=== PATIENT | female | born 2000 | race Caucasian/White ===

== ENCOUNTER 2018-07-30 01:32 | Emergency (ER) | payer OTHER ==
[~2018-07-30] VITALS: Ht 157.5 cm; Wt 56.7 kg
--- OUTSIDE RECORDS SUMMARY | 2018-07-30 01:42 | XMS REPORT ---
Author Author JETT DUPREE Organization [facility] Address [address] [place] [address] Care Team Providers Care Truck And Transport Mechanic Name Role Phone JETT DUPREE Unavailable PROBLEMS Type Condition ICD9-CM Code [id number] Code Onset Dates Condition Status SNOMED Code Problem Major depressive disorder, recurrent episode, moderate F33.1 Active [id number] ALLERGIES No Information ENCOUNTERS Encounter Location Date Diagnosis [place] [id number] [place] [phone] May, [place] [address], [place] [address] Apr, [place] [id number] [place] [phone] Apr, Major depressive disorder, recurrent episode, moderate F33.1 [id number] [place] [phone] Mar, Major depressive disorder, recurrent episode, moderate F33.1 IMMUNIZATIONS No Known Immunizations SOCIAL HISTORY Never Assessed REASON FOR VISIT Depression PLAN OF CARE Activity Details Follow Up 3 Weeks and the call in list Reason: Follow-up VITAL SIGNS MEDICATIONS Unknown Medications RESULTS No Results PROCEDURES Procedure Date Ordered Result Body Site Psychotherapy, patient &/family, 45 minutes, established patient May 03, 2018 INSTRUCTIONS MEDICATIONS ADMINISTERED No Known Medications
--- OUTSIDE RECORDS SUMMARY | 2018-07-30 01:42 | XMS REPORT ---
Author Author JETT DUPREE Organization [facility] Address [address] [place] [address] Care Team Providers Care Hat Parts Cutter Machine Name Role Phone JETT DUPREE Unavailable PROBLEMS Type Condition ICD9-CM Code [id number] Code Onset Dates Condition Status SNOMED Code Problem Major depressive disorder, recurrent episode, moderate F33.1 Active [id number] ALLERGIES No Information ENCOUNTERS Encounter Location Date Diagnosis [facility] [address], [place] [address] Apr, [facility] [address] [place] [address] Apr, [facility] [address] [place] [phone] Mar, [facility] [address] [place] [id number] [address] Mar, Major depressive disorder, recurrent episode, moderate F33.1 IMMUNIZATIONS No Known Immunizations SOCIAL HISTORY Never Assessed REASON FOR VISIT Intake PLAN OF CARE Activity Details Follow Up 1 Week Reason: Follow-up VITAL SIGNS MEDICATIONS Medication Instructions Dosage Frequency Start Date End Date Duration Status Acyclovir Active Doxycycline (Rosacea) Active RESULTS No Results PROCEDURES Procedure Date Ordered Result Body Site Psych diagnostic evaluation, new patient Apr 18, 2018 INSTRUCTIONS MEDICATIONS ADMINISTERED No Known Medications
--- OUTSIDE RECORDS SUMMARY | 2018-07-30 01:42 | XMS REPORT ---
Author Author JETT DUPREE Organization [facility] Address [address] [place] [address] Care Team Providers Care Digital Marketing Apprentice Name Role Phone JETT DUPREE Unavailable PROBLEMS Type Condition ICD9-CM Code [id number] Code Onset Dates Condition Status SNOMED Code Problem Major depressive disorder, recurrent episode, moderate F33.1 Active [id number] ALLERGIES No Information ENCOUNTERS Encounter Location Date Diagnosis [place] [id number] [place] [phone] Jun, [facility] [address] [place] [id number] [place] [phone] Jun, [facility] [address] [place] [address] May, [facility] [address] [place] [address] [id number] [place] [phone] Apr, Major depressive disorder, recurrent episode, moderate F33.1 [facility] [address], [place] [address] Apr, Major depressive disorder, recurrent episode, moderate F33.1 [place] [address] [place] [address] Mar, Major depressive disorder, recurrent episode, moderate F33.1 IMMUNIZATIONS No Known Immunizations SOCIAL HISTORY Never Assessed REASON FOR VISIT Follow-up Depression PLAN OF CARE Activity Details Follow Up 2 Weeks Reason: Follow-up VITAL SIGNS MEDICATIONS Medication Instructions Dosage Frequency Start Date End Date Duration Status Zoloft Active Acyclovir Unknown Doxycycline (Rosacea) Unknown RESULTS No Results PROCEDURES Procedure Date Ordered Result Body Site Psychotherapy, patient and family, 45 minutes, established patient May 24, 2018 INSTRUCTIONS MEDICATIONS ADMINISTERED No Known Medications
[2018-07-30] MEDS ORDERED: LACTATED RINGERS 1,000 ML IV ONE (02:55)
[2018-07-30] MEDS ORDERED: ACETAMINOPHEN 500 MG TAB (TYLENOL) PO ONE (03:00)
[2018-07-30] MEDS ORDERED: diphenhydrAMINE 25 MG TAB (BENADRYL) PO ONE (03:00)
[2018-07-30] MEDS ORDERED: PROCHLORPERAZINE 10 MG/2ML INJ (COMPAZINE) IV ONE (03:00)
--- NOTE | 2018-07-30 03:01 | ED Headache ---
General Chief Complaint: Head/Cervical Problems Stated Complaint: HAD BRAIN SURGERY 07-26-16,FLORES,HAS COPPER STINTS Nursing Triage Note: PT STATES SHE HAS HAD A PERSISTENT HEADACHE FOR THE LAST TWO WEEKS, VERBALIZED LIGHT AND NOISE SENSITIVITY. PT STATES SHE HAD BRAIN SURGERY IN 2016 TO REMOVE CLOTS. DENIES NAUSEA OR VOMITING, DENIES STRIKING HER HEAD OR VISION CHANGES. Source: patient, other Exam Limitations: no limitations History of Present Illness Date Seen by Provider: Jul 30, 2018 Time Seen by Provider: 02:44 Initial Comments The patient presents to ER by private conveyance with her significant other with chief complaint of a two-week long headache. It starts on the right mu-ism and radiates to the left mu-ism. Feels like a drill is drilling into her skull. She's having some discomfort in her bilateral occiput. She just got new prescription glasses and thought that maybe that was part of the reason she was having a headache but after a week she decided felt more like the headache she was having when she had a bunch of blood clots in her brain. In 2017 the patient had blood clots in her brain that they think are secondary to her high estrogen control but she was using for her complexion. She also had a couple copper stents placed. She says this headache is not similar to her migraines as it is constant and not throbbing and however it is accompanied with photophobia and phonophobia. She's had some nasal congestion and runny nose but no sore throat ears underwater, fevers. She's had some nausea but no vomiting. No abdominal pain diarrhea or constipation. No rashes. She's not on blood thinners nor does she use ibuprofen but she has been using Excedrin and Tylenol with modest to minimal relief of her headache. She has not use any today. Allergies and Home Medications Allergies Coded Allergies: No Allergy Information Available (Unverified , 10/17/17) Patient Home Medication List Home Medication List Reviewed: Yes Review of Systems Review of Systems Constitutional: No chills, No diaphoresis Eyes: Denies Blindness, Denies Blurred Vision Ears, Nose, Mouth, Throat: denies ear pain, denies ear discharge Respiratory: No cough, No short of breath Cardiovascular: No chest pain, No palpitations Gastrointestinal: No abdominal pain, No constipation, No diarrhea Genitourinary: No discharge, No dysuria : No LMP: Jul 17, 2018 Musculoskeletal: No back pain, No joint pain Past Mkntpvk-Nxzvsp-Muazwz Hx Patient Social History Alcohol Use: Occasionally Uses Alcohol Beverage of Choice: Beer Recreational Drug Use: No Smoking Status: Current Everyday Smoker Type Used: Electronic/Vapor Recent Foreign Travel: No Contact w/Someone Who Travel: No Recent Infectious Disease Expo: No Recent Hopitalizations: No Immunizations Up To Date PED Vaccines UTD: Yes Seasonal Allergies Seasonal Allergies: No Past Medical History Surgeries: Yes (CLOTS REMOVED FROM BRAIN-2017) Brain Shunt, Tonsillectomy Respiratory: No Cardiac: No Neurological: Yes Headaches /Migraines Genitourinary: No Gastrointestinal: No Musculoskeletal: No Endocrine: No HEENT: No Cancer: No Psychosocial: No Integumentary: No Physical Exam Vital Signs Vital Signs - First Documented 07/30/18 01:54 Temp 98.3 Pulse 77 Resp 20 B/P (MAP) 112/71 Pulse Ox 98 O2 Delivery Room Air Capillary Refill : Height, Weight, BMI Height: 5'2.00" Weight: 125lbs. oz. 56.347012ah; 21.09 BMI Method:Stated General Appearance: WD/WN, mild distress HEENT: PERRL/EOMI, normal ENT inspection, TMs normal, pharynx normal Neck: non-tender, full range of motion, supple, normal inspection Cardiovascular: normal peripheral pulses, regular rate, rhythm, no edema Respiratory: lungs clear, normal breath sounds, no respiratory distress, no accessory muscle use Gastrointestinal: non tender, soft Extremities: normal range of motion, non-tender, normal capillary refill Psychiatric: alert, oriented x 3 Crainal Nerves: normal hearing, normal speech, PERRL Coordination/Gait: normal finger to nose, normal gait Motor/Sensory: no motor deficit, no sensory deficit, no pronator drift Skin: normal color, warm/dry Progress/Results/Core Measures Results/Orders Lab Results Laboratory Tests Test 07/30/18 02:25 07/30/18 03:07 Range/Units Urine Color YELLOW Urine Clarity CLEAR Urine pH 5 5-9 Urine Specific [place] 1.020 1.016-1.022 Urine Protein NEGATIVE NEGATIVE Urine Glucose (UA) NEGATIVE NEGATIVE Urine Ketones NEGATIVE NEGATIVE Urine Nitrite NEGATIVE NEGATIVE Urine Bilirubin NEGATIVE NEGATIVE Urine Urobilinogen NORMAL NORMAL MG/DL Urine Leukocyte Esterase 1+ H NEGATIVE Urine RBC (Auto) NEGATIVE NEGATIVE Urine RBC NONE /HPF Urine WBC 5-10 H /HPF Urine Squamous Epithelial Cells 0-2 /HPF Urine Crystals PRESENT H /LPF Urine Calcium Oxalate Crystals FEW H /LPF Urine Bacteria FEW H /HPF Urine Casts NONE /LPF Urine Mucus MODERATE H /LPF Urine Culture Indicated YES Urine Opiates Screen NEGATIVE NEGATIVE Urine Oxycodone Screen NEGATIVE NEGATIVE Urine Methadone Screen NEGATIVE NEGATIVE Urine Propoxyphene Screen NEGATIVE NEGATIVE Urine Barbiturates Screen NEGATIVE NEGATIVE Ur Tricyclic Antidepressants Screen NEGATIVE NEGATIVE Urine Phencyclidine Screen NEGATIVE NEGATIVE Urine Amphetamines Screen NEGATIVE NEGATIVE Urine Methamphetamines Screen NEGATIVE NEGATIVE Urine Benzodiazepines Screen NEGATIVE NEGATIVE Urine Cocaine Screen NEGATIVE NEGATIVE Urine Cannabinoids Screen NEGATIVE NEGATIVE White Blood Count 6.9 4.3-11.0 10^3/uL Red Blood Count 4.79 4.35-5.85 10^6/uL Hemoglobin 14.5 11.5-16.0 G/DL Hematocrit 43 35-52 % Mean Corpuscular Volume 89 80-99 FL Mean Corpuscular Hemoglobin 30 25-34 PG Mean Corpuscular Hemoglobin Concent 34 32-36 G/DL Red Cell Distribution Width 12.8 10.0-14.5 % Platelet Count 258 130-400 10^3/uL Mean Platelet Volume 10.9 H 7.4-10.4 FL Neutrophils (%) (Auto) 35 L 42-75 % Lymphocytes (%) (Auto) 50 H 12-44 % Monocytes (%) (Auto) 10 0-12 % Eosinophils (%) (Auto) 5 0-10 % Basophils (%) (Auto) 0 0-10 % Neutrophils # (Auto) 2.4 1.8-7.8 X 10^3 Lymphocytes # (Auto) 3.5 1.0-4.0 X 10^3 Monocytes # (Auto) 0.7 0.0-1.0 X 10^3 Eosinophils # (Auto) 0.3 0.0-0.3 10^3/uL Basophils # (Auto) 0.0 0.0-0.1 10^3/uL Erythrocyte Sedimentation Rate 1 0-20 MM/HR Prothrombin Time 12.8 12.2-14.7 SEC INR Comment 1.0 0.8-1.4 Activated Partial Thromboplast Time 31 24-35 SEC D-Dimer 0.37 0.00-0.49 UG/ML Sodium Level 141 135-145 MMOL/L Potassium Level 4.0 3.6-5.0 MMOL/L Chloride Level 107 98-107 MMOL/L Carbon Dioxide Level 22 21-32 MMOL/L Anion Gap 12 5-14 MMOL/L Blood Urea Nitrogen 11 7-18 MG/DL Creatinine 0.66 0.60-1.30 MG/DL Estimat Glomerular Filtration Rate > 60 BUN/Creatinine Ratio 17 Glucose Level 93 70-105 MG/DL Calcium Level 9.3 8.5-10.1 MG/DL Corrected Calcium 9.0 8.5-10.1 MG/DL Total Bilirubin 0.2 0.1-1.0 MG/DL Aspartate Amino Transf (AST/SGOT) 17 5-34 U/L Alanine Aminotransferase (ALT/SGPT) 17 0-55 U/L Alkaline Phosphatase 59 40-136 U/L C-Reactive Protein High Sensitivity 0.03 0.00-0.50 MG/DL Total Protein 7.1 6.4-8.2 GM/DL Albumin 4.4 3.2-4.5 GM/DL My Orders Orders - ALYSIA JOHNSON Ct Angio Head W (07/30/18 02:55) Cbc With Automated Diff (07/30/18 02:55) Comprehensive Metabolic Panel (07/30/18 02:55) Hs C Reactive Protein (07/30/18 02:55) Fibrin Degradation Products (07/30/18 02:55) Drug Screen Stat (Urine) (07/30/18 02:55) Protime With Inr (07/30/18 02:55) Partial Thromboplastin Time (07/30/18 02:55) Ua Culture If Indicated (07/30/18 02:55) Erythrocyte Sedimentation Rate (07/30/18 02:55) Saline Lock/Iv-Start (07/30/18 02:55) Lactated Ringers (Lr 1000 Ml Iv Solution (07/30/18 02:55) Acetaminophen Tablet (Tylenol Tablet) (07/30/18 03:00) Diphenhydramine Tablet (Benadryl Tablet) (07/30/18 03:00) Prochlorperazine Injection (Compazine In (07/30/18 03:00) Urine Culture (07/30/18 02:25) Iohexol Injection (Omnipaque 350 Mg/Ml 1 (07/30/18 03:45) Contrast Received (Contrast Received) (07/30/18 03:45) Ns (Ivpb) (Sodium Chloride 0.9% Ivpb Bag (07/30/18 03:45) Medications Given in ED Current Medications Medications Dose Ordered Sig/Ariana Route Start Time Stop Time Status Last Admin Dose Admin Acetaminophen 1,000 mg ONCE ONCE PO 07/30/18 03:00 07/30/18 03:01 DC 07/30/18 03:28 1,000 MG Diphenhydramine HCl 25 mg ONCE ONCE PO 07/30/18 03:00 07/30/18 03:01 DC 07/30/18 03:28 25 MG Lactated Ringer's 1,000 ml @ 0 mls/hr Q0M ONCE IV 07/30/18 02:55 07/30/18 03:00 DC 07/30/18 03:28 1,000 MLS/HR Prochlorperazine Edisylate 10 mg ONCE ONCE IV 07/30/18 03:00 07/30/18 03:01 DC 07/30/18 03:28 10 MG Vital Signs/I&O 07/30/18 01:54 Temp 98.3 Pulse 77 Resp 20 B/P (MAP) 112/71 Pulse Ox 98 O2 Delivery Room Air Progress Progress Note #1: Time: 03:29 Progress Note White blood cells without a lot of squames consistent with a early onset bladder infection. We'll put her on Macrobid outpatient. D-dimer to be obtained. This should rule out clots in the brain. 2 weeks of headache with no neurologic deficits but she says it feels exactly the same as when she had clots in her brain. Very unusual presentation for just oral contraceptives to cause clotting in the brain and no other DVTs. She is not on oral contraceptives or NSAIDs at this time. We'll obtain a CT angiogram looking at her vasculature of her head. Urine and blood. Normal saline 1 L Progress Note #2: Time: 04:00 Progress Note D-dimer is negative. Discussed with the patient and return to discontinue the CT angiogram send her home some Zofran and get some sleep. She was sleeping when I went in to visit with her. She says her pain has improved. Diagnostic Imaging Diagonstic Imaging: CT (angio) Plain Films/CT/US/NM/MRI: head Reviewed: Reviewed by Me Departure Impression Primary Impression: Headache Qualified Codes: G44.209 - Tension-type headache, unspecified, not intractable Disposition: HOME, SELF-CARE Condition: Improved Departure-Patient Inst. Decision time for Depature: 04:02 Referrals: [facility] (PCP/Family) Primary Care Physician Patient Instructions: Migraine Headache (DC) Add. Discharge Instructions: Follow-up with student health or primary care as necessary for management of your headache. If you begin to have any neurologic symptoms of double vision, difficulty walking, intractable nausea vomiting or other worrisome symptoms you can return to the nearest ER for further evaluation. Zofran 1 tablet every 6 hours as needed for nausea. All discharge instructions reviewed with patient and/or family. Voiced understanding. Scripts Ondansetron (Ondansetron Odt) 4 Mg Tab.rapdis 4 MG PO Q6H PRN for NAUSEA/VOMITING, #10 TAB 0 Refills Prov: ALYSIA JOHNSON 07/30/18 ALYSIA JOHNSON Jul 30, 2018 03:01
[2018-07-30 03:03] LABS: BILIRUBIN,URINE NEGATIVE (NEGATIVE); CLARITY,URINE CLEAR; COLOR,URINE YELLOW; GLUCOSE, URINE (UA) NEGATIVE (NEGATIVE); KETONES,URINE NEGATIVE (NEGATIVE); LEUKOCYTE ESTERASE ,URINE 1+ (NEGATIVE); NITRITE,URINE NEGATIVE (NEGATIVE); PH,URINE 5 (5-9); PROTEIN,URINE NEGATIVE (NEGATIVE); UROBILINOGEN,URINE NORMAL (NORMAL)
[2018-07-30 03:14] LABS: BACTERIA,URINE FEW /HPF; CALCIUM OXALATE CRYSTALS,UR FEW /LPF; SQUAMOUS EPITHELIAL CELL,UR 0-2 /HPF
[2018-07-30 03:16] LABS: AMPHETAMINE SCREEN, URINE NEGATIVE (NEGATIVE); BARBITURATE SCREEN URINE NEGATIVE (NEGATIVE); BENZODIAZEPINES SCREEN URINE NEGATIVE (NEGATIVE); CANNABINOID SCREEN, URINE NEGATIVE (NEGATIVE); COCAINE SCREEN URINE NEGATIVE (NEGATIVE); METHADONE STAT NEGATIVE (NEGATIVE); METHAMPHETAMINE SCREEN URINE S NEGATIVE (NEGATIVE); OPIATE SCREEN URINE NEGATIVE (NEGATIVE); OXYCODONE STAT NEGATIVE (NEGATIVE); PROPOXYPHENE STAT NEGATIVE (NEGATIVE); TRICYCLIC ANTIDEPRESSANTS SCRE NEGATIVE (NEGATIVE)
[2018-07-30 03:19] LABS: BASOPHILS % (AUTO) 0 % (0-10); EOSINOPHILS # (AUTO) 0.3 10^3/uL (0.0-0.3); EOSINOPHILS % (AUTO) 5 % (0-10); HEMATOCRIT 43 % (35-52); HEMOGLOBIN 14.5 G/DL (11.5-16.0); LYMPHOCYTES # (AUTO) 3.5 X 10^3 (1.0-4.0); LYMPHOCYTES % (AUTO) 50 % (12-44); MEAN CORPUSCULAR HEMOGLOBIN 30 PG (25-34); MEAN CORPUSCULAR HGB CONC 34 G/DL (32-36); MEAN CORPUSCULAR VOLUME 89 FL (80-99); MEAN PLATELET VOLUME 10.9 FL (7.4-10.4); MONOCYTES # (AUTO) 0.7 X 10^3 (0.0-1.0); MONOCYTES % (AUTO) 10 % (0-12); NEUTROPHILS # (AUTO) 2.4 X 10^3 (1.8-7.8); NEUTROPHILS % (AUTO) 35 % (42-75); PLATELET COUNT 258 10^3/uL (130-400); RED CELL DISTRIBUTION WIDTH 12.8 % (10.0-14.5); WHITE BLOOD COUNT 6.9 10^3/uL (4.3-11.0)
[2018-07-30 03:36] LABS: FIBRIN DEGRADATION PRODUCTS 0.37 UG/ML (0.00-0.49); PROTHROMBIN TIME PATIENT 12.8 SEC (12.2-14.7)
[2018-07-30 03:40] LABS: ALANINE AMINOTRANSFERASE 17 U/L (0-55); ALBUMIN 4.4 GM/DL (3.2-4.5); ALKALINE PHOSPHATASE 59 U/L (40-136); BILIRUBIN,TOTAL 0.2 MG/DL (0.1-1.0); BUN/CREATININE RATIO 17; CALCIUM 9.3 MG/DL (8.5-10.1); CARBON DIOXIDE 22 MMOL/L (21-32); CHLORIDE 107 MMOL/L (98-107); CREATININE SERUM 0.66 MG/DL (0.60-1.30); GFR ESTIMATED > 60; GLUCOSE 93 MG/DL (70-105); SODIUM 141 MMOL/L (135-145); TOTAL PROTEIN 7.1 GM/DL (6.4-8.2)
[2018-07-30 03:41] LABS: ERYTHROCYTE SEDIMENTATION RATE 1 MM/HR (0-20)
[2018-07-30] MEDS ORDERED: IOHEXOL 350 MG/ML 100 ML (OMNIPAQUE 350) VIAL IV ONE (03:45)
[2018-07-30] MEDS ORDERED: RECEIVED CONTRAST (Hold Metformin) IV SCH (03:45)
[2018-07-30] MEDS ORDERED: NS 100 ML (IVPB) BAG IV ONE (03:45)
[2018-07-30] MEDS ORDERED: ONDA4TAB11 PO (04:03)
[2018-07-30] MEDS ORDERED: NITR100C PO (04:30)
== END 2018-07-30 04:30 | disposition home or self-care (01) ==
LOC: EDUNIT# 01:32 → ER 01:38
DX: R51 Headache (principal); Z86.69 Personal history of other diseases of the nervous system and sense organs; F17.290 Nicotine dependence, other tobacco product, uncomplicated; Z90.89 Acquired absence of other organs; Z98.2 Presence of cerebrospinal fluid drainage device
CPT/HCPCS: 36415; 80053; 80306; 81000; 85025; 85379; 85610; 85652; 85730; 86141; 87088

== ENCOUNTER 2019-02-20 00:44 | Emergency (ER) | payer OTHER ==
[~2019-02-20] VITALS: Ht 157.5 cm; Wt 52.2 kg
[~2019-02-20 00:44] MED LIST: NITR100C PO; ONDA4TAB11 PO
[2019-02-20 01:35] LABS: BILIRUBIN,URINE NEGATIVE (NEGATIVE); CLARITY,URINE SLIGHTLY CLOUDY; COLOR,URINE YELLOW; GLUCOSE, URINE (UA) NEGATIVE (NEGATIVE); KETONES,URINE NEGATIVE (NEGATIVE); LEUKOCYTE ESTERASE ,URINE NEGATIVE (NEGATIVE); NITRITE,URINE NEGATIVE (NEGATIVE); PH,URINE 5 (5-9); PROTEIN,URINE 2+ (NEGATIVE); UROBILINOGEN,URINE NORMAL (NORMAL)
[2019-02-20 01:44] LABS: BACTERIA,URINE NEGATIVE /HPF
[2019-02-20 01:49] LABS: BASOPHILS % (AUTO) 0 % (0-10); EOSINOPHILS # (AUTO) 0.1 10^3/uL (0.0-0.3); EOSINOPHILS % (AUTO) 1 % (0-10); HEMATOCRIT 40 % (35-52); HEMOGLOBIN 13.4 G/DL (11.5-16.0); LYMPHOCYTES # (AUTO) 2.6 X 10^3 (1.0-4.0); LYMPHOCYTES % (AUTO) 40 % (12-44); MEAN CORPUSCULAR HEMOGLOBIN 31 PG (25-34); MEAN CORPUSCULAR HGB CONC 33 G/DL (32-36); MEAN CORPUSCULAR VOLUME 92 FL (80-99); MEAN PLATELET VOLUME 10.6 FL (7.4-10.4); MONOCYTES # (AUTO) 0.7 X 10^3 (0.0-1.0); MONOCYTES % (AUTO) 10 % (0-12); NEUTROPHILS # (AUTO) 3.3 X 10^3 (1.8-7.8); NEUTROPHILS % (AUTO) 50 % (42-75); PLATELET COUNT 296 10^3/uL (130-400); RED CELL DISTRIBUTION WIDTH 13.7 % (10.0-14.5); WHITE BLOOD COUNT 6.6 10^3/uL (4.3-11.0)
[2019-02-20 02:08] LABS: BUN/CREATININE RATIO 20; CALCIUM 9.6 MG/DL (8.5-10.1); CARBON DIOXIDE 23 MMOL/L (21-32); CHLORIDE 105 MMOL/L (98-107); CREATININE SERUM 0.74 MG/DL (0.60-1.30); GFR ESTIMATED > 60; GLUCOSE 90 MG/DL (70-105); POTASSIUM 3.8 MMOL/L (3.6-5.0); SODIUM 139 MMOL/L (135-145)
--- NOTE | 2019-02-20 02:46 | ED GU-Female ---
General Chief Complaint: LOSS PREVENTION DETECTIVE Stated Complaint: VAGINAL BLEEDING Nursing Triage Note: Pt amb to room #9 w/o difficulty with c/o vaginal bleeding. Reports @ approx 0000 on this day, she went to the bathroom and noticed excessive amount of blood in her underwear. Pt states, "my underwear were like black with blood." Reports to have experienced a period lasting two months between November through January. Denies pain or discomfort. Denies using control. S/o @ side. A&OX4. Nursing Sepsis Screen: No Definite Risk Source: patient, old records Exam Limitations: no limitations History of Present Illness Date Seen by Provider: Feb 20, 2019 Time Seen by Provider: 01:13 Initial Comments This 18-year-old young lady presents to the emergency room with complaints of dysfunctional uterine bleeding. She had prolonged bleeding from November 24 through January 24. She then had a menstrual period last week that lasted about 4 days. She then began to bleed heavily tonight. Bleeding was persistent and did not slow down so she elected to present to the emergency room. She has been seeing Mely Herring for her gynecologic care. She presents reports from an extensive workup including results from coagulopathy panels and an ultrasound of the pelvis. She reportedly is being referred to a money market clerk in [place]. She reports placing a tampon about midnight. She blood through that tampon. 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 It was suspected that hormonal control therapy was a contributing factor to that thrombus. She denies any significant pain or cramping. Allergies and Home Medications Allergies Coded Allergies: No Allergy Information Available (Unverified , 10/17/17) Home Medications Nitrofurantoin Macrocrystal 100 Mg Capsule, 100 MG PO BID Prescribed by: ALYSIA JOHNSON on 07/30/18 0430 Ondansetron 4 Mg Tab.rapdis, 4 MG PO Q6H PRN for NAUSEA/VOMITING Prescribed by: ALYSIA JOHNSON on 07/30/18 040 Patient Home Medication List Home Medication List Reviewed: Yes Review of Systems Review of Systems Constitutional: no symptoms reported EENTM: no symptoms reported Respiratory: no symptoms reported Cardiovascular: no symptoms reported Gastrointestinal: no symptoms reported Genitourinary: see HPI : No LMP: Feb 14, 2019 Musculoskeletal: no symptoms reported Skin: no symptoms reported Psychiatric/Neurological: No Symptoms Reported Endocrine: No Symptoms Reported Hematologic/Lymphatic: No Symptoms Reported Past Acwyuzo-Czhtcn-Phyfyv Hx Past Med/Social Hx: Reviewed and Corrections made Patient Social History Alcohol Use: Occasionally Uses Number of Drinks Today: 0 Alcohol Beverage of Choice: Beer Recreational Drug Use: No Smoking Status: Current Everyday Smoker Type Used: Electronic/Vapor 2nd Hand Smoke Exposure: Yes Recent Foreign Travel: No Contact w/Someone Who Travel: No Recent Infectious Disease Expo: No Recent Hopitalizations: No Immunizations Up To Date PED Vaccines UTD: Yes Seasonal Allergies Seasonal Allergies: No Past Medical History Surgeries: Yes (Cranial venous sinus thrombectomy with stent placement 2017) Tonsillectomy Respiratory: No Cardiac: Yes Deep Vein Thrombosis (Intracranial venous sinus thrombosis) Neurological: Yes Headaches /Migraines : No Reproductive Disorders: Yes (Dysfunctional uterine bleeding) Genitourinary: No Gastrointestinal: No Musculoskeletal: No Endocrine: No HEENT: No Cancer: No Psychosocial: No Integumentary: No Physical Exam Vital Signs Vital Signs - First Documented 02/20/19 01:09 Temp 98.6 Pulse 69 Resp 16 B/P (MAP) 124/82 (96) Pulse Ox 98 O2 Delivery Room Air Capillary Refill : Less Than 3 Seconds Height, Weight, BMI Height: 5'2.00" Weight: 115lbs. oz. 52.735543ty; 21.09 BMI Method:Stated General Appearance: WD/WN, no apparent distress HEENT: normal ENT inspection Neck: normal inspection Cardiovascular: regular rate, rhythm, no edema, no murmur Respiratory: lungs clear, normal breath sounds, no respiratory distress, no accessory muscle use Gastrointestinal: normal bowel sounds, non tender, soft Extremities: normal inspection, no pedal edema Neurologic/Psychiatric: glass glazier II-XII nml as tested, no motor/sensory deficits, alert, normal mood/affect, oriented x 3 Skin: normal color, warm/dry Progress/Results/Core Measures Suspected Sepsis Recent Fever Within 48 Hours: No Infection Criteria Present: None New/Unexplained Altered Menta: No Sepsis Screen: No Definite Risk SIRS Temperature:98.6 Pulse: 69 Respiratory Rate: 16 Laboratory Tests 02/20/19 01:40: White Blood Count 6.6 Blood Pressure 124 /82 Mean: 96 Laboratory Tests 02/20/19 01:40: Creatinine 0.74, Platelet Count 296 Results/Orders Lab Results Laboratory Tests Test 02/20/19 01:27 02/20/19 01:40 Range/Units Urine Color YELLOW Urine Clarity SLIGHTLY CLOUDY Urine pH 5 5-9 Urine Specific [place] 1.015 L 1.016-1.022 Urine Protein 2+ H NEGATIVE Urine Glucose (UA) NEGATIVE NEGATIVE Urine Ketones NEGATIVE NEGATIVE Urine Nitrite NEGATIVE NEGATIVE Urine Bilirubin NEGATIVE NEGATIVE Urine Urobilinogen NORMAL NORMAL MG/DL Urine Leukocyte Esterase NEGATIVE NEGATIVE Urine RBC (Auto) 5+ H NEGATIVE Urine RBC 5-10 H /HPF Urine WBC NONE /HPF Urine Squamous Epithelial Cells 2-5 /HPF Urine Crystals NONE /LPF Urine Bacteria NEGATIVE /HPF Urine Casts NONE /LPF Urine Mucus NEGATIVE /LPF Urine Culture Indicated NO White Blood Count 6.6 4.3-11.0 10^3/uL Red Blood Count 4.38 4.35-5.85 10^6/uL Hemoglobin 13.4 11.5-16.0 G/DL Hematocrit 40 35-52 % Mean Corpuscular Volume 92 80-99 FL Mean Corpuscular Hemoglobin 31 25-34 PG Mean Corpuscular Hemoglobin Concent 33 32-36 G/DL Red Cell Distribution Width 13.7 10.0-14.5 % Platelet Count 296 130-400 10^3/uL Mean Platelet Volume 10.6 H 7.4-10.4 FL Neutrophils (%) (Auto) 50 42-75 % Lymphocytes (%) (Auto) 40 12-44 % Monocytes (%) (Auto) 10 0-12 % Eosinophils (%) (Auto) 1 0-10 % Basophils (%) (Auto) 0 0-10 % Neutrophils # (Auto) 3.3 1.8-7.8 X 10^3 Lymphocytes # (Auto) 2.6 1.0-4.0 X 10^3 Monocytes # (Auto) 0.7 0.0-1.0 X 10^3 Eosinophils # (Auto) 0.1 0.0-0.3 10^3/uL Basophils # (Auto) 0.0 0.0-0.1 10^3/uL Sodium Level 139 135-145 MMOL/L Potassium Level 3.8 3.6-5.0 MMOL/L Chloride Level 105 98-107 MMOL/L Carbon Dioxide Level 23 21-32 MMOL/L Anion Gap 11 5-14 MMOL/L Blood Urea Nitrogen 15 7-18 MG/DL Creatinine 0.74 0.60-1.30 MG/DL Estimat Glomerular Filtration Rate > 60 BUN/Creatinine Ratio 20 Glucose Level 90 70-105 MG/DL Calcium Level 9.6 8.5-10.1 MG/DL Serum Test, Qualitative NEGATIVE NEGATIVE My Orders Orders - TORSTEN LYNCH MD Basic Metabolic Panel (02/20/19 01:30) Cbc With Automated Diff (02/20/19 01:30) Hcg,Qualitative Serum (02/20/19 01:30) Ua Culture If Indicated (02/20/19 01:30) Vital Signs/I&O 02/20/19 02/20/19 01:09 03:00 Temp 98.6 98.6 Pulse 69 65 Resp 16 15 B/P (MAP) 124/82 (96) 109/71 (84) Pulse Ox 98 99 O2 Delivery Room Air Room Air Capillary Refill : Less Than 3 Seconds Blood Pressure Mean: 96 Progress Note : Progress Note Workup was unremarkable. Vital signs were stable. There was no significant hemorrhage in the ER. Patient is being referred back to her gynecologic provider. Departure Impression Primary Impression: Dysfunctional uterine bleeding Disposition: 01 HOME, SELF-CARE Condition: Stable Departure-Patient Inst. Decision time for Depature: 02:42 Referrals: [facility] (PCP/Family) Primary Care Physician Patient Instructions: NO INSTRUCTIONS GIVEN Add. Discharge Instructions: Follow-up with your women's health care team as soon as possible. Please call later this morning for further instructions. Return to the emergency room if you're having worsening symptoms of blood loss anemia which might include lightheadedness, shortness of breath, generalized weakness, or racing heart. All discharge instructions reviewed with patient and/or family. Voiced understanding. TORSTEN LYNCH MD Feb 20, 2019 02:46
[2019-02-20 03:00] VITALS: BP 109/71
== END 2019-02-20 03:05 | disposition home or self-care (01) ==
LOC: EDUNIT# 00:44 → ER 00:48
DX: N93.8 Other specified abnormal uterine and vaginal bleeding (principal); G43.909 Migraine, unspecified, not intractable, without status migrainosus; F17.290 Nicotine dependence, other tobacco product, uncomplicated; Z86.718 Personal history of other venous thrombosis and embolism; Z95.5 Presence of coronary angioplasty implant and graft; Z90.89 Acquired absence of other organs
CPT/HCPCS: 36415; 80048; 81000; 84703; 85025